=== PATIENT | male | born 1940 | race Caucasian/White ===

== ENCOUNTER → 2017-02-05 | Outpatient (CLI) | payer MEDICARE, OTHER ==
[~2017-02-05] MED LIST: ASPIRIN LO-DOSE81 MG PO; COREG12.5 MG PO; FISH OIL1000 MG PO; IMDUR30 MG PO; KLONOPIN1 MG PO; LEVAQUIN500 MG PO; LIPITOR80 MG PO; MULTI-DAY VITA1 EACH PO; NEURONTIN100 MG PO; NEURONTIN600 MG PO; NITROSTAT0.4 MG SL; PANTOPRAZOLE SO40 MG PO; PLAVIX75 MG PO; ULTRAM50 MG PO
== END ==
LOC: LKCL 17:08
DX: D04.62 Carcinoma in situ of skin of left upper limb, including shoulder (principal)